=== PATIENT | male | born 1955 | race Caucasian/White ===

== ENCOUNTER 2023-05-02 13:36 | Emergency (ER) | payer SELFPAY ==
[~2023-05-02] VITALS: Ht 182.9 cm; Wt 77.0 kg
[2023-05-02 14:04] VITALS: BP 160/82
[2023-05-02 15:17] LABS: Acetaminophen < 2.0 ug/mL (10-30); Blood Urea Nitrogen 30 mg/dL (7-18); Chloride 115 mmol/L (98-107); Glucose 117 mg/dL (74-106); Potassium 4.5 mmol/L (3.5-5.1); Salicylate 11.1 mg/dL (2.8-20.0); Sodium 145 mmol/L (136-145)
[2023-05-02 15:23] LABS: Alanine Aminotransferase 15 U/L (16-61); Alkaline Phosphatase 88 U/L (45-117); Anion Gap 8 (5-15); Aspartate Aminotransferase 20 U/L (15-37); Bilirubin, Total 0.2 mg/dL (0.2-1.0); Blood Alcohol < 3.0 mg/dL (0-5); Carbon Dioxide 22 mmol/L (21-32); GFR African American 43 mL/min; GFR Non-African American 36 mL/min; Total Protein 6.3 g/dL (6.4-8.2)
[2023-05-02 16:04] LABS: Basophils # (auto) 0 10 ^3/uL (0-0.2); Basophils % (auto) 0.5 % (0.0-2.0); Eosinophils # (auto) 0.1 10 ^3/uL (0-0.8); Eosinophils % (auto) 1.2 % (0.0-7.0); Hemoglobin 12.1 g/dL (13.5-17.5); Lymphocytes # (auto) 1.7 10 ^3/uL (0.4-5.4); Mean Corpuscular Hemoglobin 33.5 pg (28.0-32.0); Mean Corpuscular Hgb Conc. 34.6 g/dL (32.0-36.0); Mean Corpuscular Volume 96.7 fL (80.0-100.0); Monocytes # (auto) 0.6 10 ^3/uL (0-1.3); Monocytes % (auto) 10.8 % (0.0-12.0); Neutrophils % (auto) 55.5 % (37.0-80.0); Nucleated Red Blood Cells % 0.2 %; Red Blood Cells 3.62 10^6/uL (4.5-5.90); Red Cell Distribution Width 14.6 % (11.8-14.3); White Blood Cell 5.4 10^3/uL (4.4-10.8)
== END 2023-05-02 18:19 | disposition left against medical advice (07) ==
LOC: ER 13:36 → EDBD 13:36 → ER 18:19
DX: R44.0 Auditory hallucinations (principal); F17.210 Nicotine dependence, cigarettes, uncomplicated
CPT/HCPCS: 36415; 80053; 80320; 80329; 85025

== ENCOUNTER 2025-01-24 13:49 | Emergency (ER) | payer MEDICARE, OTHER ==
--- NOTE | 2025-01-24 15:26 | ED.PDOC ---
General HPI Comments 69 y/o M, presents to the ED for CC of testicular pain. Patient states, he has been experiencing scrotal pain with associated swelling x 7 days. Patient relays, this is the first time symptoms have arouse. Patient comments, he is currently homeless. Patient denies fever, dysuria, hematuria, penile discharge, flank pain, or back pain. No other associated symptoms, modifiers, recent injuries or sick contacts at this time. Chief Complaint: Testicle Pain Time Seen by MD: 15:10 Reviewed notes: Nurses Notes, Medications, Allergies Allergies: Coded Allergies: NO KNOWN ALLERGIES (Unverified , 05/02/23) Information Source: Patient Mode of Arrival: Wheelchair Severity: Moderate Timing: Days Duration: Since onset Prehospital treatment: None Onset: Spontaneous Symptoms: None History of: None Location: None Location male: R Scrotum, L Scrotum Penile discharge: None Modifying factors: None associated signs and symptoms: None Past Medical History PAST MEDICAL HISTORY: Schizophrenia Surgical History: Denies all surgeries Family History Family History: No family hx of Cancer, No family hx of DM, No family hx of Heart rosemary Social History Smoker: Cigarettes Alcohol: Denies ETOH Use Drugs: Denies Drug Use Lives In: Home Constitutional: denies: chills, diaphoresis, fatigue, fever, malaise, sweats, weakness, others EENTM: denies: blurred vision, double vision, ear bleeding, ear discharge, ear drainage, ear pain, ear ringing, eye pain, eye redness, hearing loss, mouth pain, mouth swelling, nasal discharge, nose bleeding, nose congestion, nose pain, photophobia, tearing, throat pain, throat swelling, voice changes, others Respiratory: denies: cough, hemoptysis, orthopnea, SOB at rest, shortness of breath, SOB with excertion, stridor, wheezing, others Cardiovascular: denies: chest pain, dizzy spells, diaphoresis, Dyspnea on exertion, edema, irregular heart beat, left arm pain, lightheadedness, palpitations, PND, syncope, others Gastrointestinal: denies: abdomen distended, abdominal pain, blood streaked bowels, constipated, diarrhea, dysphagia, difficulty swallowing, hematemesis, melena, nausea, poor appetite, poor fluid intake, rectal bleeding, rectal pain, vomiting, others Genitourinary: reports: testicle pain, testicle swelling; denies: burning, dysu bambi, flank pain, frequency, hematuria, incontinence, penile discharge, penile sore, pain, urgency, others Neurological: denies: dizziness, fainting, headache, left sided numbness, left sided weakness, numbness, paresthesia, pre-existing deficit, right sided numbness, right sided weakness, seizure, speech problems, tingling, tremors, weakness, others Musculoskeletal: denies: back pain, gout, joint pain, joint swelling, muscle pain, muscle stiffness, neck pain, others Integumetry: denies: bruises, change in color, change in hair/nails, dryness, laceration, lesions, lumps, rash, wounds, others Allergic/Immunocompromised: denies: Difficulty Healing, Frequent Infections, Hives, Itching, others Hematologic/Lymphatic: denies: anemia, blood clots, easy bleeding, easy bruising, swollen glands, others Endocrine: denies: excessive hunger, excessive sweating, excessive thirst, excessive urination, flushing, intolerance to cold, intolerance to heat, unexplained weight gain, unexplained weight loss, others Psychiatric: denies: anxiety, bipolar disorder, depression, hopeless, panic disorder, schizophrenia, sleepless, suicidal, others All Other Systems: Reviewed and Negative Physical Exam General Appearance: Moderate Distress (Moderate distress due to testicular pain concerns.), Normal HEENT: Normal ENT Inspection, Pharynx Normal, TMs Normal Neck: Full Range of Motion, Non-Tender, Normal, Normal Inspection Respiratory: Chest Non-Tender, Lungs Clear, No Accessory Muscle Use, No Respiratory Distress, Normal Breath Sounds Cardiovascular: No Edema, No JVD, No Murmur, No Gallop, Normal Peripheral Pulses, Regular Rate/Rhythm Breast Exam: Deferred Gastrointestinal: No Organomegaly, Non Tender, No Pulsatile Mass, Normal Bowel Sounds, Soft Genitalia: Other ( Diffuse bilateral tenderness to palpation throughout both testicles. Edema noted. Tender to palpation. No penile discharge appreciated. No chancre formation on the shaft.) Pelvic: Deferred Rectal: Deferred Extremities: NOT DONE Neurologic: NOT DONE Cerebellar Function: NOT DONE Reflexes: NOT DONE Skin: Dry, Normal Color, Warm Lymphatic: No Adenopathy Was a procedure done? Was a procedure done?: No Differential Diagnosis Kidney stone (Female): N/A Penile/Scrotal: Epidiymitis, Prostatitis, UTI, Hydrocele, Urinary Retention X-Ray, Labs, Meds, VS Vital Signs Date Time Temp Pulse Resp B/P (MAP) Pulse Ox O2 Delivery O2 Flow Rate FiO2 01/24/25 16:50 98.1 72 16 145/60 (88) 94 98.1 Current Medications Medications (Trade) Dose Ordered Sig/Natalia Route Start Time Stop Time Status Last Admin Ketorolac Tromethamine (Toradol Injection) 30 mg ONCE ONCE IM 01/24/25 15:30 01/24/25 15:31 DC 01/24/25 16:50 Ceftriaxone Sodium (Rocephin) 500 mg ONCE ONCE IM 01/24/25 16:15 01/24/25 16:16 DC 01/24/25 16:50 Azithromycin (Zithromax Tablet) 1,000 mg ONCE ONCE PO 01/24/25 16:15 01/24/25 16:16 DC 01/24/25 16:38 X-Ray, Labs, Meds, VS Comment All studies performed the ED were evaluated by me personally. Testicular ultrasound revealed bilateral orchitis and epididymitis. Prominent bilateral hydrocele were noted as well. No testicular torsion. Patient was given a dose of azithromycin and Rocephin prior to discharge. Patient will go home with a prescription for Levaquin to address any broad-spectrum concerns and urinary tract issues. Time of 1ST Reevaluation: 17:08 Reevaluation 1ST: Improved Consultation: PCP Patient Education/Counseling: Diagnosis, Treatment Family Education/Counseling: Diagnosis, Treatment, No Family Present Departure 1 Departure Time of Disposition: 17:08 Impression: Primary Impression: Orchitis and epididymitis Additional Impression: Hydrocele of testis Disposition: 01 HOME / SELF CARE / HOMELESS Condition: Stable Additional Instructions: Advised patient utilize antibiotics as directed until completion. Patient should follow up with the primary care provider in 10 days for re-evaluation or return to the ED for re-evaluation. e-Prescriptions Tramadol Hcl (Tramadol Hcl) 50 Mg Tab 50 MG PO Q8HP PRN, #15 TAB Prov: JOSE LUIS DAS PAC 01/24/25 Ibuprofen Micronized (Ibuprofen) 800 Mg Tab 800 MG PO Q8HP PRN, #20 TAB Prov: JOSE LUIS DAS PAC 01/24/25 Levofloxacin Hemihydrate (LEVAQUIN 500 MG) 500 Mg Tab 1 TAB PO DAILY, #10 TAB Prov: JOSE LUIS DAS PAC 01/24/25 Discharged With: Self, Friend Critical Care Note Critical Care Time?: No Stability Stability form required: No Heart Score Heart Score: Heart Score Response (Comments) Value History N/A 0 EKG N/A 0 Age N/A 0 Risk Factors N/A 0 Troponin N/A 0 Total 0 I personally scribed for JOSE LUIS DAS PAC ([email or web address]) on 01/24/25 at 15:25. Electronically submitted by Kellie Ortiz ([email or web address]). JOSE LUIS DAS PAC Jan 24, 2025 15:25
--- NOTE | 2025-01-24 15:57 | DVH ---
ULTRASOUND OF SCROTUM AND CONTENTS. INDICATION: Pain COMPARISON: None TECHNIQUE: Multiple real-time grayscale sonographic and color and duplex Doppler images of the scrotu m and its contents were obtained. FINDINGS: Right testicle measures 3.8 left testicle is 3.5 cm. Both testicles appear hypervascular. Epididymis is enlarged bilaterally measuring 2.1 on the right and 2.2 on the left. There is thickening of the sc rotal wall. Bilateral hydroceles. IMPRESSION: Findings consistent with orchitis and epididymitis bilaterally. Prominent bilateral hydroceles. No torsion.
[2025-01-24] MEDS: AZITHROMYCIN 250 MG TAB PO ONE (16:38)
[2025-01-24 16:50] VITALS: BP 145/60; PULSE 72; RESP 16; TEMP 98.1; O2SAT 94
[2025-01-24] MEDS: cefTRIAXone SOD 500 MG VL IM ONE (16:50)
[2025-01-24] MEDS: KETOROLAC TROMETH 60MG/2ML VIAL IM ONE (16:50)
[2025-01-24] MEDS ORDERED: LEVO500T91 PO (17:10)
[2025-01-24] MEDS ORDERED: TRAM50TA2 PO (17:10)
[2025-01-24] MEDS ORDERED: IBUP-1455 PO (17:10)
== END 2025-01-24 17:42 | disposition home or self-care (01) ==
LOC: EDBD 13:49 → ER 13:49
DX: N45.3 Epididymo-orchitis (principal); N43.3 Hydrocele, unspecified; F17.210 Nicotine dependence, cigarettes, uncomplicated; F20.9 Schizophrenia, unspecified
CPT/HCPCS: 76870; 96372; 99285; J0696; J1885

== ENCOUNTER 2025-09-11 14:14 | Emergency (ER) | payer MEDICAID ==
[~2025-09-11] VITALS: Ht 180.3 cm; Wt 80.0 kg
[2025-09-11 14:14] VITALS: TEMP 93.3
[~2025-09-11 14:14] MED LIST: IBUP-1455 PO; LEVO500T91 PO; TRAM50TA2 PO
--- NOTE | 2025-09-11 14:21 | ED.PDOC ---
CPR-HPI HPI Comments This is a 70 year old male TC presenting to the ED with chief complaint of cardiac arrest. EMS reports patient was being taken to dialysis today by family when he had started to feel unwell and then soon after becoming unresponsive. EMS relays S.O. on scene had started chest compressions prior to their arrival, however, after taking the patient they had provided 2 rounds of Epinephrine, a dose of Calcium, NS, and D10 due to a blood sugar of 50 being noted. EMS notes patient was initially asystole, but they got ROSC at 1408. Time Seen by MD: 14:19 Reviewed Notes: Nurses Notes, Box Lining Machine Operator Notes, Medications, Allergies Allergies: Coded Allergies: NO KNOWN ALLERGIES (Unverified , 05/02/23) Home Meds Active Scripts Tramadol Hcl (Tramadol Hcl) 50 Mg Tab, 50 MG PO Q8HP PRN, #15 TAB Prov:JOSE LUIS DAS PAC 01/24/25 Ibuprofen Micronized (Ibuprofen) 800 Mg Tab, 800 MG PO Q8HP PRN, #20 TAB Prov:JOSE LUIS DAS PAC 01/24/25 Levofloxacin Hemihydrate (LEVAQUIN 500 MG) 500 Mg Tab, 1 TAB PO DAILY, #10 TAB Prov:JOSE LUIS DAS PAC 01/24/25 Information Source: Emergency Med Personnel Mode of Arrival: EMS Timing: Minutes Duration: Down time prior EMS: (5 minutes), Total time prior hopital: (15 minutes) Onset: At rest Available Hx: Unknown Inital rhythm: Asystole Treatment: CPR, IV, Epinephrine Response: Sustained return of pulse Past Medical History PAST MEDICAL HISTORY: CHF, CKF, HTN, Schizophrenia Surgical History: Denies all surgeries Family History Family History: No family hx of Cancer, No family hx of DM, No family hx of Heart rosemary Social History Smoker: Cigarettes Alcohol: Denies ETOH Use Drugs: Denies Drug Use Lives In: Home Constitutional: denies: chills, diaphoresis, fatigue, fever, malaise, sweats, weakness, others EENTM: denies: blurred vision, double vision, ear bleeding, ear discharge, ear drainage, ear pain, ear ringing, eye pain, eye redness, hearing loss, mouth pain, mouth swelling, nasal discharge, nose bleeding, nose congestion, nose pain, photophobia, tearing, throat pain, throat swelling, voice changes, others Respiratory: denies: cough, hemoptysis, orthopnea, SOB at rest, shortness of breath, SOB with excertion, stridor, wheezing, others Cardiovascular: denies: chest pain, dizzy spells, diaphoresis, Dyspnea on exertion, edema, irregular heart beat, left arm pain, lightheadedness, palpitations, PND, syncope, others Gastrointestinal: denies: abdomen distended, abdominal pain, blood streaked bowels, constipated, diarrhea, dysphagia, difficulty swallowing, hematemesis, melena, nausea, poor appetite, poor fluid intake, rectal bleeding, rectal pain, vomiting, others Genitourinary: denies: burning, dysuria, flank pain, frequency, hematuria, incontinence, penile discharge, penile sore, pain, testicle pain, testicle swelling, urgency, others Neurological: denies: dizziness, fainting, headache, left sided numbness, left sided weakness, numbness, paresthesia, pre-existing deficit, right sided numbness, right sided weakness, seizure, speech problems, tingling, tremors, weakness, others Musculoskeletal: denies: back pain, gout, joint pain, joint swelling, muscle pain, muscle stiffness, neck pain, others Integumetry: denies: bruises, change in color, change in hair/nails, dryness, laceration, lesions, lumps, rash, wounds, others Allergic/Immunocompromised: denies: Difficulty Healing, Frequent Infections, Hives, Itching, others Hematologic/Lymphatic: denies: anemia, blood clots, easy bleeding, easy bruising, swollen glands, others Endocrine: denies: excessive hunger, excessive sweating, excessive thirst, excessive urination, flushing, intolerance to cold, intolerance to heat, unexpl ained weight gain, unexplained weight loss, others Psychiatric: denies: anxiety, bipolar disorder, depression, hopeless, panic disorder, schizophrenia, sleepless, suicidal, others Unable to Obtain due to: Medical Urgency All Other Systems: Reviewed and Negative Physical Exam General Appearance: Cachectic, Moderate Distress HEENT: Pharynx Normal Neck: Normal Inspection Respiratory: Other (patient being bagged) Cardiovascular: Other (bradycardic) Breast Exam: Deferred Gastrointestinal: No Organomegaly Genitalia: Deferred Pelvic: Deferred Rectal: Deferred Extremities: No pedal edema Neurologic: Other (Unresponsive) Cerebellar Function: NOT DONE Reflexes: NOT DONE Skin: Mottled, Other (Dialysis catheter in right chest wall, IO in right love) Lymphatic: NOT DONE Was a procedure done? 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 Indication: Hypotension, CVP monitoring Room prepared for procedure: Yes Medical Referral Coordinator performed hand hygien: Yes Maximal sterile barrier precau: Mask/Eye shield, Sterlie gloves, Large sterlie drape Skin Preparation: Chlorhexidine gluconate Skin preparation completely dr: Yes Insertion site: Left, Internal jugular Central line catheter type: [id number] dialysis Number of lumens: 3 Central line exchanged over a: Yes Antiseptic ointment applied to: Yes Post Assessment: Chest X-Ray, Proper placement Informed consent obtained: Yes Risks/benefits/alt described: Yes Intubation Indication: Respiratory Insufficiency, Altered Mental Status, Airway Protection Prep: Preoxygenation Pretreated with: Sedation Intubation Approach: Orotracheal Intubation size: cm (8) Informed consent obtained: No Risks/benefits/alt described: No Differential Dx CPR Differential Diagnosis: Cardiopulmonary arrest, Electrolyte disorder, Respiratory Failure X-Ray, Labs, Meds, VS Vital Signs Date Time Temp Pulse Resp B/P (MAP) Pulse Ox O2 Delivery O2 Flow Rate FiO2 09/11/25 17:47 115/50 09/11/25 17:30 97/50 09/11/25 17:30 97/50 09/11/25 17:00 29 09/11/25 17:00 109/43 09/11/25 17:00 109/43 09/11/25 16:47 44 18 99/37 (57) 94 100 09/11/25 16:30 99/37 09/11/25 16:30 99/37 09/11/25 16:30 99/37 09/11/25 16:15 80 16 135/60 (85) 90 09/11/25 16:00 116 16 45/16 (26) 09/11/25 16:00 45/16 09/11/25 16:00 45/16 09/11/25 16:00 114 09/11/25 15:45 60/36 09/11/25 15:45 27 18 55/23 (34) 09/11/25 15:30 42 18 70/37 (48) 09/11/25 15:30 70/37 09/11/25 15:30 70/37 09/11/25 15:16 Ambu-Bag 90 09/11/25 15:15 42 18 126/31 (62) 09/11/25 15:00 47 18 45/ (32) 09/11/25 15:00 51 09/11/25 14:45 90 19 181/73 (109) 90 09/11/25 14:38 80 19 100 09/11/25 14:30 79/42 09/11/25 14:22 103 09/11/25 14:14 93.3 109 18 170/64 93.3 Lab Test 09/11/25 17:36 09/11/25 16:31 09/11/25 14:33 Range/Units Troponin I High Sensitivity Pending 1371 *H 969 *H </=54 ng/L Lactic Acid Level 18.6 *H 13.1 *H 0.4-2.0 mmol/L White Blood Count 10.1 4.4-10.8 10^3/uL Red Blood Count 2.41 L 4.5-5.90 10^6/uL Hemoglobin 7.8 L 13.5-17.5 g/dL Hematocrit 25.3 L 41.0-53.0 % Mean Corpuscular Volume 105.1 H 80.0-100.0 fL Mean Corpuscular Hemoglobin 32.2 H 28.0-32.0 pg Mean Corpuscular Hemoglobin Concent 30.7 L 32.0-36.0 g/dL Red Cell Distribution Width 22.0 H 11.8-14.3 % Platelet Count 101 L 140-450 10^3/uL Mean Platelet Volume 8.2 6.9-10.8 fL Neutrophils (%) (Auto) 37.0-80.0 % Lymphocytes (%) (Auto) 10.0-50.0 % Monocytes (%) (Auto) 0.0-12.0 % Basophils (%) (Auto) 0.0-2.0 % Neutrophils # (Auto) 1.6-8.6 10 ^3/uL Lymphocytes # (Auto) 0.4-5.4 10 ^3/uL Monocytes # (Auto) 0-1.3 10 ^3/uL Differential Total Cells Counted 100.0 100 Neutrophils % (Manual) 45 37.0-80.0 Band Neutrophils % (Manual) 18 Lymphocytes % (Manual) 25 10.0-50.0 Monocytes % (Manual) 9 0-12 Eosinophils % (Manual) 0 0-7 Basophils % (Manual) 0 0.0-2.0 Metamyelocytes % (manual) 1 Myelocytes % (Manual) 2 Promyelocytes % (Manual) 0 Blast Cells % (Manual) 0 Nucleated Red Blood Cells % Reactive Lymphocytes 0 Platelet Estimate Decreased Large Platelets Few Poikilocytosis (manual) Moderate Anisocytosis (manual) Slight Macrocytosis Slight [place] Cells Many Sodium Level 137 136-145 mmol/L Potassium Level 6.4 *H 3.5-5.1 mmol/L Chloride Level 101 98-107 mmol/L Carbon Dioxide Level 11 L 20-31 mmol/L Anion Gap 25 H 5-15 Blood Urea Nitrogen 91 *H 9-23 mg/dL Creatinine 6.29 H 0.700-1.30 mg/dL Glomerular Filtration Rate Calc 9 >90 mL/min BUN/Creatinine Ratio 14.5 10.0-20.0 Serum Glucose 215 H 74-106 mg/dL Calcium Level 8.7 8.7-10.4 mg/dL Total Bilirubin 0.2 0.2-1.0 mg/dL Aspartate Amino Transferase (AST) 693 H 13-40 U/L Alanine Aminotransferase (ALT) 213 H 7-40 U/L Alkaline Phosphatase 206 H 46-116 U/L Total Protein 3.9 L 5.7-8.2 g/dL Albumin 2.0 L 3.2-4.8 g/dL Lipase 22 12-53 U/L Current Medications Medications (Trade) Dose Ordered Sig/Natalia Route Start Time Stop Time Status Last Admin Epinephrine HCl 250 ml @ 7.5 mls/hr Q24H IV 09/11/25 15:30 09/11/25 15:30 Norepinephrine Bitartrate 250 ml @ 3.75 mls/hr Q24H IV 09/11/25 14:30 09/11/25 14:30 Dopamine HCl/ Dextrose 250 ml @ 15 mls/hr [id number] IV 09/11/25 15:45 09/11/25 15:45 Vasopressin 20 units/Sodium Chloride 100 ml @ 9 mls/hr Q11H7M IV 09/11/25 16:00 09/11/25 16:00 Phenylephrine HCl 250 ml @ 30 mls/hr Q8H20M IV 09/11/25 16:00 09/11/25 17:47 Dextrose 50 ml ONCE ONCE IV 09/11/25 15:12 09/11/25 17:19 DC 09/11/25 15:12 Dextrose 50 ml ONCE ONCE IV 09/11/25 14:46 09/11/25 17:19 DC 09/11/25 14:46 Dextrose 50 ml ONCE ONCE IV 09/11/25 15:38 09/11/25 17:19 DC 09/11/25 15:38 Sodium Bicarbonate 50 ml ONCE ONCE IV 09/11/25 15:34 09/11/25 17:19 DC 09/11/25 15:34 Dextrose 1,000 ml @ 100 mls/hr Q10H ONCE IV 09/11/25 14:28 09/12/25 00:27 09/11/25 14:28 Time of 1ST Reevaluation: 14:08 Reevaluation 1ST: ROSC Time of 2ND Reevaluation: 14:19 Reevaluation 2ND: Worsened (Lost pulses) Patient Education/Counseling: Pt Unresponsive Family Education/Counseling: No Family Present SEPSIS Sepsis Screen Physician Orders Urinalysis (09/11/25 14:18) Chest Portable (09/11/25 14:36) Head Without Contrast (09/11/25 14:36) Troponin-I Hs (09/11/25 17:18) Vent Ip Init (09/11/25 14:20) Respiratory Culture W/ Gs (09/11/25 14:29) Abg W/ Co-Ox (09/11/25 15:00) Epinephrine Hcl (09/11/25 15:30) Communication Order (09/11/25 15:11) Norepinephrine 8 Mg/250ml Kit (Levophed) (09/11/25 14:30) Communication Order (09/11/25 15:27) Dopamine 1600mcg/Ml D5w (09/11/25 15:45) Communication Order (09/11/25 15:47) Sodium Chl 0.9% (So... W/Vasopressin (09/11/25 16:00) Phenylephrine Iv (Phenylephrine/Ns) (09/11/25 16:00) Communication Order (09/11/25 16:00) Communication Order (09/11/25 15:28) Propofol (Diprivan) (09/11/25 14:32) Fentanyl Drip 2500mcg/250mlns (09/11/25 14:34) Rass Sedation Scale Q1HR (09/11/25 17:07) Dextrose 10% (09/11/25 14:28) Basic Metabolic Panel (09/11/25 17:48) Vital Signs Date Time Temp Pulse Resp B/P (MAP) Pulse Ox O2 Delivery O2 Flow Rate FiO2 09/11/25 17:47 115/50 09/11/25 17:30 97/50 09/11/25 17:30 97/50 09/11/25 17:00 29 09/11/25 17:00 109/43 09/11/25 17:00 109/43 09/11/25 16:47 44 18 99/37 (57) 94 100 09/11/25 16:30 99/37 09/11/25 16:30 99/37 09/11/25 16:30 99/37 09/11/25 16:15 80 16 135/60 (85) 90 09/11/25 16:00 116 16 45/16 (26) 09/11/25 16:00 45/16 09/11/25 16:00 45/16 09/11/25 16:00 114 09/11/25 15:45 60/36 09/11/25 15:45 27 18 55/23 (34) 09/11/25 15:30 42 18 70/37 (48) 09/11/25 15:30 70/37 09/11/25 15:30 70/37 09/11/25 15:16 Ambu-Bag 90 09/11/25 15:15 42 18 126/31 (62) 09/11/25 15:00 47 18 45/25 (32) 09/11/25 15:00 51 09/11/25 14:45 90 19 181/73 (109) 90 09/11/25 14:38 80 19 100 09/11/25 14:30 79/42 09/11/25 14:22 103 09/11/25 14:14 93.3 109 18 170/64 93.3 Laboratory Tests Test 09/11/25 14:33 09/11/25 16:31 Lactic Acid Level 13.1 mmol/L (0.4-2.0) *H 18.6 mmol/L (0.4-2.0) *H White Blood Count 10.1 10^3/uL (4.4-10.8) Medications Medications Dose Ordered Sig/Natalia Route Start Time Stop Time Status Last Admin Dose Admin Dextrose 50 ml ONCE ONCE IV 09/11/25 14:46 09/11/25 17:19 DC 09/11/25 14:46 Dextrose 50 ml ONCE ONCE IV 09/11/25 15:12 09/11/25 17:19 DC 09/11/25 15:12 Dextrose 50 ml ONCE ONCE IV 09/11/25 15:38 09/11/25 17:19 DC 09/11/25 15:38 Dextrose 1,000 ml @ 100 mls/hr Q10H ONCE IV 09/11/25 14:28 09/12/25 00:27 09/11/25 14:28 Dopamine HCl/ Dextrose 250 ml @ 15 mls/hr [id number] IV 09/11/25 15:45 09/11/25 15:45 Epinephrine HCl 250 ml @ 7.5 mls/hr Q24H IV 09/11/25 15:30 09/11/25 15:30 Norepinephrine Bitartrate 250 ml @ 3.75 mls/hr Q24H IV 09/11/25 14:30 09/11/25 14:30 Phenylephrine HCl 250 ml @ 30 mls/hr Q8H20M IV 09/11/25 16:00 09/11/25 17:47 Sodium Bicarbonate 50 ml ONCE ONCE IV 09/11/25 15:34 09/11/25 17:19 DC 09/11/25 15:34 Vasopressin 20 units/Sodium Chloride 100 ml @ 9 mls/hr Q11H7M IV 09/11/25 16:00 09/11/25 16:00 Departure 1 Departure Time of Disposition: 17:58 (Patient presented after cardiac arrest. Patient was intubated and central line placed emergently. Patient arrested multiple times with rosc achieved. Patient is maxed out on pressors. I discussed with patients brother who still wants patient full code. I did not treat patients hyperkalemia with insulin because patient was persistently hypoglycemic.) Impression: Primary Impression: Cardiac arrest Additional Impression: ESRD (end stage renal disease) on dialysis Disposition: ADMITTED INPATIENT Admit to: ICU Condition: Critical Critical Care Note Critical Care Time?: Yes (35 min-critical care time only) Critical care comment: S/p cardiac arrest Authorized and Performed by: Malik Brewer MD Total critical care time: Approximately 133 minutes Due to a high probability of clinically significant, life threatening deterioration, the patient required my highest level of preparedness to intervene emergently and I personally spent this critical care time directly and personally managing the patient. This critical care time included obtaining a history; examining the patient; pulse oximetry; ordering and review of studies; arranging urgent treatment with development of a management plan; evaluation of patient's response to treatment; frequent reassessment; and, discussions with other providers. This critical care time was performed to assess and manage the high probability of imminent, life-threatening deterioration that could result in multi-organ failure. It was exclusive of separately billable procedures and treating other patients and teaching time. Please see my other sections and the rest of the note for further information on patient assessment and treatment. Heart Score Heart Score: Heart Score Response (Comments) Value History N/A 0 EKG N/A 0 Age N/A 0 Risk Factors N/A 0 Troponin N/A 0 Total 0 Stability Stability form required: No I personally scribed for MALIK BREWER MD ([email or web address]) on 09/11/25 at 14:21. Electronically submitted by Fidencio Mancia ([email or web address]). MALIK BREWER MD Sep 11, 2025 14:21
[2025-09-11 14:23] VITALS: PULSE 112; RESP 22; O2SAT 85
[2025-09-11] MEDS: DEXTROSE (50%) 50ML SYRG IV ONE ×4 (14:23→15:38)
[2025-09-11] MEDS: DEXTROSE 50% SYRINGE 50 ML IV ONE ×2 (14:23→15:12)
[2025-09-11] MEDS: DEXTROSE 10% 1,000 ML IV ONE ×2 (14:28→14:48)
[2025-09-11] MEDS: NOREPINEPHRINE 8 MG/250ML KIT 250 ML IV SCH (14:30)
[2025-09-11] MEDS ORDERED: PROPOFOL 100 ML IV SCH (14:32)
[2025-09-11] MEDS: PROPOFOL 100 ML IV ONE (14:32)
[2025-09-11] MEDS ORDERED: fentaNYL Drip 2500mCg/250mlNS 250 ML IV SCH (14:34)
[2025-09-11] MEDS: fentaNYL Drip 2500mCg/250mlNS 250 ML IV ONE (14:34)
[2025-09-11] MEDS: NOREPINEPHRINE 8 MG/250ML KIT 250 ML IV ONE (14:36)
[2025-09-11] MEDS: DEXTROSE 50% SYRINGE 150 ML IV ONE (14:46)
[2025-09-11] MEDS ORDERED: DEXTROSE 10% 250 ML IV ONE (14:48)
[2025-09-11 15:05] LABS: Anion Gap 25 (5-15); BUN/Creatinine Ratio 14.5 (10.0-20.0); Chloride 101 mmol/L (98-107); Hemoglobin 7.8 g/dL (13.5-17.5); Lipase 22 U/L (12-53); Mean Corpuscular Volume 105.1 fL (80.0-100.0); Sodium 137 mmol/L (136-145)
[2025-09-11 15:06] LABS: Hematocrit 25.3 % (41.0-53.0); Mean Corpuscular Hemoglobin 32.2 pg (28.0-32.0)
[2025-09-11] MEDS ORDERED: CALCIUM CHLOR(10%) 100MG/ML 10ML SYRINGE IV ONE ×2 (15:10→15:57)
[2025-09-11 15:12] LABS: Alanine Aminotransferase 213 U/L (7-40); Albumin 2.0 g/dL (3.2-4.8); Alkaline Phosphatase 206 U/L (46-116); Bilirubin, Total 0.2 mg/dL (0.2-1.0); Calcium 8.7 mg/dL (8.7-10.4); Carbon Dioxide 11 mmol/L (20-31); Glucose 215 mg/dL (74-106); Potassium 6.4 mmol/L (3.5-5.1); Total Protein 3.9 g/dL (5.7-8.2)
[2025-09-11 15:15] LABS: Blood Urea Nitrogen 91 mg/dL (9-23); Lactic Acid w/Reflex 13.1 mmol/L (0.4-2.0)
--- NOTE | 2025-09-11 15:16 | RESUS ---
CODE BLUE ASSESSSMENT History of Events History of Events: Patient arrived via EMS unresponsive and apneic with assisted bag mask ventilations s/p CPR. Per EMS, family stated they were on their way to dialysis appointment when patient suddenly stated he wasn't feeling well. They pulled over into a bank parking lot where he became unresponsive. 911 was called, S.O. arrived first on scene and CPR was initiated by them. Upon EMS arrival patient was found unresponsive, pulseless, and apneic in asystole with CPR in progress. EMS gave total of Epinephrine 2mg IVP, Calcium Chloride 1 amp, Sodium Bicarb x1 amp, D10, and NS bolus. Patient did go into VFib and was shocked x1. ROSC achieved prior to arrival at 1408. Blood sugar 50 in field. After arrival to hospital patient coded at 1419. See below for further details. Initial Information Date: Sep 11, 2025 Time: 14:10 Location of Arrest: ER Arrest Witnessed: Yes CPR started by whom: EMS Pre-Hospital Care: ACLS Type of arrest: Cardiac, Respiratory, Adult, Witnessed Spontaneous Respirations: No Pulse Present: No Monitoring: ECG, Telemetry Crash Cart Opened and Supplies: Yes Airway Ventilation Breathing at Onset: Agonal Oxygen Delivery Method: Ambu-Bag Artificial Ventilation: Bag/Mask, Bag/Endo tube Intubation Time: 14:15 Intubation Size: 8.0 cuffed Intubated by: Dr. Painting Intubation Attempts: 1 Intubated orally: Yes Intubated Nasaly: No Tube secured at: 24 (lip) Cricoid pressure done: Yes CO2 indicator used: Yes Confirmation: Auscultation, Exhaled CO2, Chest X-ray Suctioning (Oral/Tracheal): Yes Circulation Circulation #1: Time: 14:25 Pulse Rate (adult): 98 Blood Pressure Systolic: 170 Blood Pressure Diastolic: 64 Temperature (Fahrenheit): 93.3 (rectal) Circulation #2: Time: 14:32 Blood Pressure Systolic: 79 Blood Pressure Diastolic: 42 Circulation #3: Time: 14:33 Pulse Rate (adult): 79 Blood Pressure Systolic: 76 Blood Pressure Diastolic: 45 Circulation #4: Time: 14:40 Pulse Rate (adult): 20 Circulation #5: Time: 14:44 Pulse Rate (adult): 81 Circulation #6: Time: 14:45 Pulse Rate (adult): 90 Blood Pressure Systolic: 181 Blood Pressure Diastolic: 73 Procedure - IV Procedure - IV #1: IV start time: 14:18 IV Side: Left IV Location: Hand IV Catheter Type: Saline Lock IV Placed: In Hospital IV Placed by Shelby JARRETT IV Gauge: 22 IV Line Care: Saline Flush Procedure - IV #2: IV start time: 14:25 IV Side: Right IV Location: Hand IV Catheter Type: Saline Lock IV Placed: In Hospital IV Placed by Dread JARRETT IV Gauge: 20 IV Line Care: Saline Flush Procedure - Intraosseous Size of intraosseous: 45 Site of Intraosseous: Tibia reynaldo-medial (Right lower extremity) Intraosseous inserted by: EMS Medications & Response Medications and Responses #1: Medication Time: 14:19 ADULT Medications Given ADULT: Epinephrine 1 mg Route of Administration: IO Heart Rate: 0 EKG Rhythm: Asystole Blood Pressure Systolic: 0 Blood Pressure Diastolic: 0 EKG Rhythm: Asystole Medications and Responses #2: Medication Time: 14:20 ADULT Medications Given ADULT: 2 Amps Na Bicarb Route of Administration: IV Medication Comment: Calcium Gluconate 2 gm IVPB Heart Rate: 0 EKG Rhythm: Asystole Blood Pressure Systolic: 0 Blood Pressure Diastolic: 0 EKG Rhythm: Sinus Bradycardia Medications and Responses #3: Medication Time: 14:22 ADULT Medications Given ADULT: Magnesium Sulfate 2 gm Route of Administration: IV Heart Rate: 104 EKG Rhythm: Sinus Tachycardia EKG Rhythm: Sinus Rhythm Medications and Responses #4: Medication Time: 14:23 ADULT Medications Given ADULT: D50 (amp) Route of Administration: IV Medication Comment: Blood sugar 51 Medications and Responses #5: Medication Time: 14:40 ADULT Medications Given ADULT: Epinephrine 1 mg Route of Administration: IO Medication Comment: Levophed gtt started at 10 mcg/min per Dr Painting verbal order. Heart Rate: 20 EKG Rhythm: Sinus Bradycardia Blood Pressure Systolic: 0 Blood Pressure Diastolic: 0 EKG Rhythm: Sinus Rhythm Medications and Responses #6: Medication Time: 14:42 ADULT Medications Given ADULT: Calcium Chloride 10 mL Route of Administration: IV Heart Rate: 0 EKG Rhythm: Asystole Blood Pressure Systolic: 0 Blood Pressure Diastolic: 0 EKG Rhythm: Sinus Rhythm Medications and Responses #7: Medication Time: 14:43 ADULT Medications Given ADULT: Sodium Bacarbinate 50 meq Route of Administration: IV Heart Rate: 0 Blood Pressure Systolic: 0 Blood Pressure Diastolic: 0 EKG Rhythm: Sinus Rhythm Medications and Responses #8: Medication Time: 14:46 ADULT Medications Given ADULT: D50 (amp) Route of Administration: IV Medication Comment: Blood sugar 36 Nurses Notes [place] Coma Scale Eye Opening: None (1) [place] Coma Scale Verbal: None (1) [place] Coma Scale Motor: None (1) [place] Total: 3 Pupil Reaction: Non Reactive Bedside Blood Glucose: 25 EKG Rhythm: Sinus Rhythm, Sinus Bradycardia, Asystole Nurses Notes - Comment: 1410: Patient arrived with ROSC 1414: Blood sugar 25 1419: Code blue- CPR/ACLS initiated 1422: ROSC- EKG ST 103- Blood sugar 51 1435: CXRP 1440: Levophed gtt started at 10 mcg/min per Dr. Painting 1442: Code blue- CPR initiated 1444: ROSC 1445: Blood sugar 36 Time Code Ended Time Code Ended: 14:50 Post Arrest Status: Ventilated Outcome of code: Successful Code Team Present: Dread Delong RN, Roderick RT, Georgiana RT, Shelby Riddle RN, Mariposa RN, Gus RN, Clarisse RN Post Resuscitation Neurologica Pupil Size: 2 Comment: Fixed, equal and dilated. ROSC Time of ROSC: 14:44 Clarisse Mcallister Sep 11, 2025 15:16
[2025-09-11] MEDS: EPINEPHrine HCL 250 ML IV ONE (15:20)
--- NOTE | 2025-09-11 15:22 | DVH ---
INDICATION: ams TECHNIQUE: Single AP portable chest radiograph was obtained. COMPARISON: XR CHEST 1 VIEW on DOS: 04/25/25, XR CHEST 1 VIEW on DOS: 04/25/25 FINDINGS: Right dual-lumen catheter tip projects over the distal SVC. Cardiomegaly. Moderate right pleural effusion. IMPRESSION: Cardiomegaly. Moderate right pleural effusion.
[2025-09-11] MEDS: EPINEPHrine HCL 250 ML IV SCH (15:30)
[2025-09-11] MEDS: SODIUM BICARB 8.4% 50Meq/50ml SYR INJ ONE (15:34)
[2025-09-11] MEDS: SODIUM BICARB 8.4% 50Meq/50ml SYR Vial IV ONE (15:34)
[2025-09-11] MEDS: DEXTROSE 50% SYRINGE 100 ML IV ONE (15:38)
[2025-09-11] MEDS: DOPamine 1600MCG/ML D5W 250 ML IV ONE (15:43)
[2025-09-11] MEDS: DOPamine 1600MCG/ML D5W 250 ML IV SCH (15:45)
[2025-09-11] MEDS: PHENYLEPHRINE IV 250 ML IV ONE (15:55)
[2025-09-11] MEDS: VASOPRESSIN 20 UNITS in SODIUM CHL 0.9% 99 ML IV SCH (16:00)
[2025-09-11] MEDS: PHENYLEPHRINE IV 250 ML IV SCH (16:00)
[2025-09-11] MEDS: VASOPRESSIN 40 UNITS in D5W 5% 198 ML IV SCH (16:00)
[2025-09-11 16:03] LABS: Anisocytosis Slight; Macrocytosis Slight; Total Cells Counted 100.0 (100)
[2025-09-11 17:00] VITALS: O2SAT 93
--- NOTE | 2025-09-11 17:47 | ECG ---
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
[2025-09-11 18:15] VITALS: BP 92/41; PULSE 18; RESP 16
[2025-09-11] MEDS ORDERED: CEFEPIME 2GM/50ML NS 50 ML IV ONE (18:15)
[2025-09-11] MEDS ORDERED: ALBUMIN 25% 50 ML IV PRN (18:45)
[2025-09-11] MEDS ORDERED: SODIUM CHL 0.9% 1000 ML BAG XX ONE (18:45)
--- NOTE | 2025-09-11 18:46 | DVHINCON2 ---
Date of service: Sep 11, [address] Puentes Reason for Consultation ESRD to manage HD History of Present Illness Patient is 70 y/o male with PMH of ESRD on HD q MWF, DM type II, CHF, CKF, HTN, and Schizophrenia who missed HD today at [facility], is admitted s/p cardiac arrest. Patient intubated on ventilator. Nephrology is consulted to manage HD Past Medical History PAST MEDICAL HISTORY: ESRD on HD q MWF, CHF, CKF, HTN, Schizophrenia Past Surgical History Right IJ tunneled HD catheter Allergies: Coded Allergies: NO KNOWN ALLERGIES (Unverified , 05/02/23) Home Meds Active Scripts Tramadol Hcl (Tramadol Hcl) 50 Mg Tab, 50 MG PO Q8HP PRN, #15 TAB Prov:JOSE LUIS DAS PAC 01/24/25 Ibuprofen Micronized (Ibuprofen) 800 Mg Tab, 800 MG PO Q8HP PRN, #20 TAB Prov:JOSE LUIS DAS PAC 01/24/25 Levofloxacin Hemihydrate (LEVAQUIN 500 MG) 500 Mg Tab, 1 TAB PO DAILY, #10 TAB Prov:JOSE LUIS DAS [facility] 01/24/25 Current Medications Current Medications Medications (Trade) Dose Ordered Sig/Natalia Route PRN Reason Start Time Stop Time Status Last Admin Epinephrine HCl 250 ml @ 7.5 mls/hr Q24H IV 09/11/25 15:30 09/12/25 00:41 DC 09/11/25 15:30 Norepinephrine Bitartrate 250 ml @ 3.75 mls/hr Q24H IV 09/11/25 14:30 09/12/25 00:41 DC 09/11/25 14:30 Dopamine HCl/ Dextrose 250 ml @ 15 mls/hr [id number] IV 09/11/25 15:45 09/12/25 00:41 DC 09/11/25 15:45 Vasopressin 40 units/Dextrose 200 ml @ 60 mls/hr Q3H20M IV 09/11/25 16:00 09/11/25 17:42 DC Vasopressin 20 units/Sodium Chloride 100 ml @ 9 mls/hr Q11H7M IV 09/11/25 16:00 09/12/25 00:41 DC 09/11/25 16:00 Phenylephrine HCl 250 ml @ 30 mls/hr Q8H20M IV 09/11/25 16:00 11/6/25 00:41 DC 09/11/25 17:47 Propofol 100 ml @ 2.4 mls/hr Q24H IV 09/11/25 14:32 09/12/25 00:41 DC Fentanyl Citrate 250 ml @ 2.5 mls/hr Q24H IV 09/11/25 14:34 09/12/25 00:41 DC Albumin Human 50 ml @ 100 mls/hr Q1HR PRN IV HD to keep SBP > 100 09/11/25 18:45 09/11/25 20:29 DC Review of Systems Can't be obtained H&P Exam Vital Signs/I&O Vital Sign Date Time Temp Pulse Resp B/P (MAP) Pulse Ox O2 Delivery O2 Flow Rate FiO2 09/11/25 18:15 18 16 92/41 (58) 100 09/11/25 17:00 93 09/11/25 15:16 Ambu-Bag 09/11/25 14:23 15 Intake and Output 09/11/25 09/12/25 19:00 07:00 Intake Total 460.25 ml Balance 460.25 ml Intake IV Total 460.25 ml Physical Exam Patient intubated on ventilator Lung Decrease BS on right Cardiac: tachycardia GI; soft : NL Ext: no CCE Neuro: non responsive Labs/Diagnostic Data Labs/Diagnostic Data Laboratory Tests Test 09/11/25 17:36 09/11/25 16:31 09/11/25 16:24 09/11/25 14:33 Range/Units Sodium Level 138 137 136-145 mmol/L Potassium Level 6.5 *H 6.4 *H 3.5-5.1 mmol/L Chloride Level 102 101 98-107 mmol/L Carbon Dioxide Level < 10 *L 11 L 20-31 mmol/L Anion Gap 26.04534 H 25 H 5-15 Blood Urea Nitrogen 69 #H 91 *H 9-23 mg/dL Creatinine 6.40 H 6.29 H 0.700-1.30 mg/dL Glomerular Filtration Rate Calc 9 9 >90 mL/min BUN/Creatinine Ratio 10.8 14.5 10.0-20.0 Serum Glucose 211 H 215 H 74-106 mg/dL Uric Acid 12.9 H 3.7-9.2 mg/dL Calcium Level 8.6 L 8.7 8.7-10.4 mg/dL Troponin I High Sensitivity 2005 *H 1371 *H 969 *H </=54 ng/L Lactic Acid Level 18.6 *H 13.1 *H 0.4-2.0 mmol/L Phosphorus Level 16.5 H 2.4-5.1 mg/dL Magnesium Level 3.1 H 1.6-2.6 mg/dL Urine Color Yellow Yellow Urine Clarity Turbid H Clear Urine pH 5.5 5.0-9.0 Urine Specific [place] 1.020 1.001-1.035 Urine Protein 2+ H Negative Urine Ketones Trace Negative Urine Blood 2+ H Negative /uL Urine Nitrite Negative Negative Urine Bilirubin Negative Negative Urine Urobilinogen Normal Negative mg/dL Urine Leukocyte Esterase 3+ Negative /uL Urine RBC 46 0 - 3 /hpf Urine WBC Clumps Present None Seen /hpf Urine Microscopic WBC 150 H 0-3 /HPF Urine Squamous Epithelial Cells Few <5 /hpf Urine Bacteria Few H None Seen /hpf Urine Hyaline Casts Few 0 - 2 /lpf Urine Glucose Normal Normal mg/dL White Blood Count 10.1 4.4-10.8 10^3/uL Red Blood Count 2.41 L 4.5-5.90 10^6/uL Hemoglobin 7.8 L 13.5-17.5 g/dL Hematocrit 25.3 L 41.0-53.0 % Mean Corpuscular Volume 105.1 H 80.0-100.0 fL Mean Corpuscular Hemoglobin 32.2 H 28.0-32.0 pg Mean Corpuscular Hemoglobin Concent 30.7 L 32.0-36.0 g/dL Red Cell Distribution Width 22.0 H 11.8-14.3 % Platelet Count 101 L 140-450 10^3/uL Mean Platelet Volume 8.2 6.9-10.8 fL Neutrophils (%) (Auto) 37.0-80.0 % Lymphocytes (%) (Auto) 10.0-50.0 % Monocytes (%) (Auto) 0.0-12.0 % Basophils (%) (Auto) 0.0-2.0 % Neutrophils # (Auto) 1.6-8.6 10 ^3/uL Lymphocytes # (Auto) 0.4-5.4 10 ^3/uL Monocytes # (Auto) 0-1.3 10 ^3/uL Differential Total Cells Counted 100.0 100 Neutrophils % (Manual) 45 37.0-80.0 Band Neutrophils % (Manual) 18 Lymphocytes % (Manual) 25 10.0-50.0 Monocytes % (Manual) 9 0-12 Eosinophils % (Manual) 0 0-7 Basophils % (Manual) 0 0.0-2.0 Metamyelocytes % (manual) 1 Myelocytes % (Manual) 2 Promyelocytes % (Manual) 0 Blast Cells % (Manual) 0 Nucleated Red Blood Cells % Reactive Lymphocytes 0 Platelet Estimate Decreased Large Platelets Few Poikilocytosis (manual) Moderate Anisocytosis (manual) Slight Macrocytosis Slight Radha Cells Many Total Bilirubin 0.2 0.2-1.0 mg/dL Aspartate Amino Transferase (AST) 693 H 13-40 U/L Alanine Aminotransferase (ALT) 213 H 7-40 U/L Alkaline Phosphatase 206 H 46-116 U/L B-Type Natriuretic Peptide 1883.89 0-100 pg/mL Total Protein 3.9 L 5.7-8.2 g/dL Albumin 2.0 L 3.2-4.8 g/dL Lipase 22 12-53 U/L Assessment ESRD missed HD Acute respiratory failure, intubated on ventilator s/p cardiac arrest x 3 CHF exacerbation NSTEMI Hyperkalemia Septic shock Macrocytic anemia REC: Emergent HD, I put a call out for a nurse Albumin 25% prn HD Epogen 10,000 SQ 3 x weekly Strict I&O's IV Abx Emergent medical treatment for hyperkalemia, pending HD IV pressors for BP support Cardiology consult Guarded prognosis Patient seen and examined by myself, I discussed my plan of care with Dr. puentes and the primary nurse at bedside I would like to thank Dr. Puentes for the consult, will follow Plan discussed with: Other (nurse) LEVAR VALVERDE MD Sep 11, 2025 18:46
[2025-09-11] MEDS ORDERED: ALBUMIN 25% 100 ML IV ONE (19:00)
[2025-09-11 19:13] LABS: Magnesium 3.1 mg/dL (1.6-2.6)
[2025-09-11 19:14] LABS: Chloride 102 mmol/L (98-107); Sodium 138 mmol/L (136-145)
[2025-09-11 19:15] LABS: Anion Gap 26.00001 (5-15)
[2025-09-11 19:21] LABS: BUN/Creatinine Ratio 10.8 (10.0-20.0)
[2025-09-11 19:42] LABS: Blood Urea Nitrogen 69 mg/dL (9-23); Calcium 8.6 mg/dL (8.7-10.4); Glucose 211 mg/dL (74-106)
[2025-09-11 19:45] LABS: Carbon Dioxide < 10 mmol/L (20-31); Potassium 6.5 mmol/L (3.5-5.1)
[2025-09-11 19:51] LABS: Urine Protein, UAD 2+ (Negative); Urine WBC Clumps PRESENT /hpf (None Seen)
[2025-09-11] MEDS ORDERED: EPOETIN ALFA-EPBX 10,000 UNIT/1ML VIAL SC ONE (21:00)
== END 2025-09-11 18:33 ==
LOC: ER 14:14 → EDBD 14:14 → ER 18:33
DX: I46.9 Cardiac arrest, cause unspecified (principal); I13.2 Hypertensive heart and chronic kidney disease with heart failure and with stage 5 chronic kidney disease, or end stage renal disease; N18.6 End stage renal disease; Z99.2 Dependence on renal dialysis; Z79.899 Other long term (current) drug therapy
CPT/HCPCS: 31500; 36415; 36556; 36600; 71045; 80048; 80053; 81001; 82805; 82947; 83605; 83690; 83735; 83880; 84100; 84484; 84550; 85007; 85027; 87340; 92950; 93005; 96365; 96366; 96376; 99291; J0169; J1265; J2371; J2704; J7042; 96375; J7060